=== PATIENT | male | born 1960 | race Caucasian/White ===

== ENCOUNTER 2019-04-07 21:04 | Emergency (ER) | payer OTHER, SELFPAY ==
[2019-04-07 21:23] VITALS: BP 155/111; PULSE 86; RESP 20; TEMP 36.7; O2SAT 97
[2019-04-07 21:30] VITALS: PULSE 85
--- NOTE | 2019-04-07 21:39 | DI.RAD.S_ITS ---
PROCEDURE: XR TIBIA FIBULA RT 2V INDICATIONS: swelling TECHNIQUE: 2 views of the tibia and fibula were acquired. COMPARISON: None. FINDINGS: Bones: No fractures or dislocations. No suspicious bony lesions. Soft tissues: No suspicious soft tissue calcifications or masses. IMPRESSION: No acute fracture. No osseous lesion. If symptoms or clinical suspicion for pathology persists, repeat plain films, or advanced imaging (CT, bone scan, or MRI) may be helpful for further assessment. Concordant with preliminary interpretation. Dictated by: Jody Alcaraz M.D. on 04/08/2019 at 7:23 Approved by: Jody Alcaraz M.D. on 04/08/2019 at 7:24
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
[2019-04-08 00:23] VITALS: BP 153/93; PULSE 66; RESP 18; O2SAT 99
== END 2019-04-08 00:24 | disposition home or self-care (01) ==
PROVIDERS: Emergency Provider Emergency Medicine
DX: S80.12XA Contusion of left lower leg, initial encounter (principal); W19.XXXA Unspecified fall, initial encounter
CPT/HCPCS: 73590; 99282; 99283